=== PATIENT | female | born 1945 | race Caucasian/White ===

== ENCOUNTER 2021-04-12 14:34 | Emergency (ER) | payer OTHER, MEDICARE ==
[~2021-04-12] VITALS: Ht 152.4 cm; Wt 79.4 kg
[~2021-04-12 14:34] MED LIST: ATORVASTATIN CA80 MG PO; BENZONATATE100 MG PO; LOSARTAN POTASS50 MG PO; PREDNISONE10 MG PO; SYNTHROID112 MCG PO; ULTRAM50 MG PO
[2021-04-12] MEDS ORDERED: ZOFRAN4 MG PO (17:34)
[2021-04-12] MEDS ORDERED: HYDROCODON-ACE1 EA10 PO (17:34)
== END 2021-04-12 18:42 | disposition home or self-care (01) ==
LOC: ED 14:34
DX: S22.089A Unspecified fracture of T11-T12 vertebra, initial encounter for closed fracture (principal); E78.00 Pure hypercholesterolemia, unspecified; I10 Essential (primary) hypertension; J45.909 Unspecified asthma, uncomplicated; F17.200 Nicotine dependence, unspecified, uncomplicated; Z88.0 Allergy status to penicillin; Z88.2 Allergy status to sulfonamides; Z88.8 Allergy status to other drugs, medicaments and biological substances; Z79.899 Other long term (current) drug therapy; W01.0XXA Fall on same level from slipping, tripping and stumbling without subsequent striking against object, initial encounter; Z79.52 Long term (current) use of systemic steroids
CPT/HCPCS: 72131; 99283-25; A9270